=== PATIENT | male | born 1980 | race Caucasian/White ===

== ENCOUNTER 2021-08-19 03:05 | Emergency (ER) | payer SELFPAY ==
[2021-08-19 04:04] VITALS: BP 137/89
== END 2021-08-19 07:00 | disposition left against medical advice (07) ==
LOC: ED 03:05
DX: S99.919A Unspecified injury of unspecified ankle, initial encounter (principal); Z53.21 Procedure and treatment not carried out due to patient leaving prior to being seen by health care provider; X58.XXXA Exposure to other specified factors, initial encounter; Y93.89 Activity, other specified; Y92.89 Other specified places as the place of occurrence of the external cause; Y99.8 Other external cause status